=== PATIENT | female | born 1955 | race Caucasian/White ===

== ENCOUNTER 2016-10-06 20:45 | Emergency (ER) | payer OTHER ==
--- NOTE | ~2016-10-06 | CR156 ---
[facility]. [facility] A Service of [facility] & [facility] RADIOLOGY TEXT RESULTS PATIENT: EDNY BENOIT LOCATION: SED : 59 UNIT #: [id number] AGE: [address]: Christos Kapadia MD SEX: F ORDER DR: [id number] [place] [id number] E MR#: [id number] Acc #: [id number] NAME: DENY BENOIT : 1955 SEX: F STUDY DATE/TIME: 10/06/2016 21:04 UNIT: SED ROOM: STUDY DESCRIPTION: CR Humerus Min 2 View Lt Attending Physician: Christos Kapadia M.D. Ordering Physician: Christos Kapadia M.D. Primary Care Physician: [facility] MEDICAL IMAGING REPORT This report is preliminary unless electronic signature is present. EXAM Left humerus 2 views HISTORY Fell at 07:00 p.m. tonight complaining of left shoulder and arm pain. FINDINGS 2 views are submitted. Redemonstrated is the surgical neck fracture of the humerus at its juncture with the left humeral head, it appears impacted. The remainder of the humeral shaft is normal. CONCLUSION Fracture at the juncture of the surgical neck and humeral head with slight impaction. Dictated by... Chrisots Mackay M.D. THIS IS AN ELECTRONICALLY VERIFIED REPORT Christos Mackay M.D. at 10/10/2016 5:10 PM Anjelica TD: 10/07/2016 09:19 JOB #: [id number] MEDICAL IMAGING REPORT Page 1 of 1
--- NOTE | ~2016-10-06 | CT52 ---
[facility] A Service of [facility] RADIOLOGY TEXT RESULTS PATIENT: DENY BENOIT LOCATION: SED : 59 UNIT #: [id number] AGE: [address]: Christos Kapadia MD SEX: F ORDER DR: [id number] [place] [id number] E MR#: [id number] Acc #: [id number] NAME: DENY BENOIT : 1955 SEX: F STUDY DATE/TIME: 10/06/2016 21:02 UNIT: SED ROOM: STUDY DESCRIPTION: CT Cervical Spine Wo Cont Attending Physician: Christos Kapadia M.D. Ordering Physician: Christos Kapadia M.D. [facility] REPORT This report is preliminary unless electronic signature is present. EXAM CT of the cervical spine. HISTORY Fell at home complaining of left shoulder and left-sided neck pain since 7 this evening. TECHNIQUE Transaxial imaging of the cervical spine was performed without contrast and multiplanar reconstructions were obtained. This CT exam was performed with one or more of the following radiation dose reduction techniques: automatic exposure control, adjustment of mA and/or kV according to patient size, and iterative reconstruction. FINDINGS Cervical alignment is normal. There is mild disc space narrowing at C5-6 with marginal spur formation. There is underlying facet disease at C3-4 and C4-5 and C5-6. There is also facet disease at C7-T1. Alignment is normal. No fractures are seen. Atlantoaxial relationships are intact. CONCLUSION Mild degenerative disc disease at C5-6. Mild facet disease throughout the cervical spine. No fractures, subluxations, or acute findings. Dictated by... Christos Mackay M.D. THIS IS AN ELECTRONICALLY VERIFIED REPORT Christos Mackay M.D. at 10/10/2016 5:09 PM [facility] A Service of [facility] RADIOLOGY TEXT RESULTS PATIENT: DENY BENOIT LOCATION: SED : 59 UNIT #: [id number] AGE: [address]: Christos Kapadia MD SEX: F ORDER DR: ZOHRA/michael TD: 10/07/2016 09:19 JOB #: [id number] MEDICAL IMAGING REPORT Page 1 of 1
--- NOTE | ~2016-10-06 | CR229 ---
[facility]. [facility] A Service of [facility] RADIOLOGY TEXT RESULTS PATIENT: DENY BENOIT LOCATION: SED : 59 UNIT #: [id number] AGE: [address]: Christos Kapadia MD SEX: F ORDER DR: [id number] [place] [id number] E MR#: [id number] Acc #: [id number] NAME: DENY BENOIT : 1955 SEX: F STUDY DATE/TIME: 10/06/2016 21:04 UNIT: SED ROOM: STUDY DESCRIPTION: CR Shoulder Min 2 View Lt Attending Physician: Christos Kapadia M.D. Ordering Physician: Christos Kapadia M.D. [facility] REPORT This report is preliminary unless electronic signature is present. EXAM Left shoulder 2 views HISTORY Fell at 07:00 p.m. today, complaining of left shoulder pain FINDINGS 2 views are submitted. The examination shows a fracture through the surgical neck of the humerus. There is mild impaction of the fracture. It is nondisplaced. It does not appear angulated. Remaining bony elements are intact. CONCLUSION Impacted fracture through the surgical neck of the humerus at its juncture with the humeral head. Dictated by... Christos Mackay M.D. THIS IS AN ELECTRONICALLY VERIFIED REPORT Christos Mackay M.D. at 10/10/2016 5:10 PM ZOHRA/janet TD: 10/07/2016 09:15 JOB #: [id number] MEDICAL IMAGING REPORT Page 1 of 1
[~2016-10-06 20:45] MED LIST: ANTIBIOTIC; ANUSOL-HC SUPP25 M1 PR; CALCIUM 500 +1 EACH PO; CLARITIN10 M2 PO; CLINDAMYCIN PHOSPHAT; CLOBETASOL 0.0560 GM TOP; CRESTOR10 MG PO; DIOVAN HCT 1601 EACH PO; EMBELINE15 GM TOP; ESTRACE; FIBER LAXATIVE625 MG; FISH OIL 1,2001 EACH PO; FLAX SEED OIL1000 M1 PO; FLAX SEED OIL1000 M2; GAVISCON1 TAB PO; GAVISCON500 MG PO; HALOPERIDOL100 MG/M1; MULTI VITAMIN1 EACH; MULTIVITAMIN1 UDCAP PO; NEXIUM PO; OMEGA 3 FISH OI1 CAP; SYNTHROID112 MCG PO; TRIAMCINOLONE A15 G2 EXT; VITAMIN C500 M1 PO
== END 2016-10-06 23:04 | disposition home or self-care (01) ==
LOC: SED 20:45
DX: S42.212A Unspecified displaced fracture of surgical neck of left humerus, initial encounter for closed fracture (principal); S13.4XXA Sprain of ligaments of cervical spine, initial encounter; E11.9 Type 2 diabetes mellitus without complications; I10 Essential (primary) hypertension; Z88.1 Allergy status to other antibiotic agents; Z91.041 Radiographic dye allergy status; W19.XXXA Unspecified fall, initial encounter; Y92.009 Unspecified place in unspecified non-institutional (private) residence as the place of occurrence of the external cause
CPT/HCPCS: 72125; 73030; 73060; 99284